=== PATIENT | female | born 1970 | race Caucasian/White ===

== ENCOUNTER 2021-07-27 05:18 | Day surgery (SDC) | payer OTHER ==
[2021-07-24 10:03] VITALS: BMI 32.0
[2021-07-27] MEDS ORDERED: MIDAZOLAM HCL 2 MG/2 ML SINGLE DOSE VIAL ONE (12:58)
[2021-07-27] MEDS ORDERED: PROPOFOL 20 ML ONE (12:58)
[2021-07-27] MEDS ORDERED: GLYCOPYRROLATE 0.2 MG/1 ML VIAL ONE (12:59)
[2021-07-27] MEDS ORDERED: KETOROLAC TROMETHAMINE 30 MG/1 ML VIAL ONE (12:59)
[2021-07-27] MEDS ORDERED: LIDOCAINE HCL 2% 100 MG/5 ML DISP.SYRIN ONE (12:59)
[2021-07-27] MEDS ORDERED: LIDOCAINE HCL/PF 2% SDV 5ML VIAL ONE (12:59)
[2021-07-27 14:23] VITALS: BP 138/84; PULSE 89; TEMP 97.2
== END 2021-07-27 14:31 | disposition home or self-care (01) ==
LOC: JASU-SURG 05:18
PROVIDERS: ATTEND Urology
PROC: 0TF4XZZ Fragmentation in Left Kidney Pelvis, External Approach (ICD-10-PCS; principal; 2021-07-27 11:30)
DX: N20.0 Calculus of kidney (principal); E11.9 Type 2 diabetes mellitus without complications

== ENCOUNTER 2021-09-07 04:11 | Day surgery (SDC) | payer OTHER ==
[2021-09-03 11:50] VITALS: BMI 31.6
[2021-09-07] MEDS ORDERED: GLYCOPYRROLATE 0.2 MG/1 ML VIAL ONE (07:45)
[2021-09-07] MEDS ORDERED: MIDAZOLAM HCL 2 MG/2 ML SINGLE DOSE VIAL ONE (07:46)
[2021-09-07] MEDS ORDERED: LIDOCAINE HCL/PF 2% SDV 5ML VIAL ONE (08:00)
[2021-09-07] MEDS ORDERED: PROPOFOL 20 ML ONE (08:00)
[2021-09-07 09:16] VITALS: BP 130/84; PULSE 89; TEMP 97.2
[2021-09-07] MEDS ORDERED: ACETAMINOPHEN 500 MG TABLET (FP) PO PRN (09:21)
[2021-09-07] MEDS ORDERED: LACTATED RINGERS SOLUTION 1,000 ML IV SCH (09:30)
== END 2021-09-07 10:00 | disposition home or self-care (01) ==
LOC: JASU-SURG 04:11
PROVIDERS: ATTEND Urology
PROC: 0TF4XZZ Fragmentation in Left Kidney Pelvis, External Approach (ICD-10-PCS; principal; 2021-09-07 08:00)
DX: N20.0 Calculus of kidney (principal)
CPT/HCPCS: 82962

== ENCOUNTER 2021-10-12 12:51 | Observation (INO) | payer OTHER ==
[2021-10-12] MEDS ORDERED: morphine CARPU-JECT 4 MG/1 ML DISP.SYRIN IVPUSH ONE (13:23)
[2021-10-12] MEDS ORDERED: SODIUM CHLORIDE 0.9% 500 ML INFUS.BAG IV ONE ×2 (13:23→16:47)
[2021-10-12] MEDS ORDERED: ONDANSETRON 4 MG/2 ML VIAL IVPUSH ONE (13:23)
[2021-10-12] MEDS ORDERED: ONDANSETRON 4 MG/2 ML VIAL ONE (13:42)
[2021-10-12] MEDS ORDERED: morphine SULFATE 4 MG/ML VIAL ONE ×2 (13:42→20:12)
[2021-10-12] MEDS ORDERED: ACETAMINOPHEN 1000 MG/100 ML BAG IVPB ONE (14:03)
[2021-10-12] MEDS ORDERED: ACETAMINOPHEN INJECTION 100 ML IVPB ONE (14:06)
[2021-10-12 14:44] LABS: HEMATOCRIT 41.6 % (32.4-45.2); HEMOGLOBIN 13.7 GM/dL (10.7-15.3); MCH 28.2 pg (25.7-33.7); MEAN CELL VOLUME 85.6 fl (80-96); MEAN PLT VOLUME 8.8 fl (7.5-11.1); PLATELET COUNT 327 10^3/uL (134-434); RBC 4.87 M/mm3 (3.60-5.2); RDW 13.9 % (11.6-15.6); WHITE BLOOD COUNT 19.5 K/mm3 (4.0-10.0)
[2021-10-12 14:45] LABS: CALCIUM 9.8 mg/dL (8.5-10.1)
[2021-10-12 14:46] LABS: ALBUMIN 4.2 g/dl (3.4-5.0); BLOOD UREA NITROGEN 23.6 mg/dL (7-18)
[2021-10-12 14:49] LABS: CREATININE 1.5 mg/dL (0.55-1.3)
[2021-10-12 14:50] LABS: BILIRUBIN,TOTAL 0.4 mg/dL (0.2-1)
[2021-10-12 14:51] LABS: TOT PROT 7.8 g/dl (6.4-8.2)
[2021-10-12] MEDS ORDERED: morphine CARPU-JECT 2 MG/1 ML DISP.SYRIN IVPUSH ONE (15:08)
[2021-10-12 15:11] LABS: INR 1.09 (0.83-1.09); PROTHROMBIN TIME (PATIENT) 12.6 SEC (9.7-13.0)
[2021-10-12 16:48] LABS: ANISOCYTOSIS 3+; MACROCYTOSIS 0
[2021-10-12] MEDS ORDERED: ACETAMINOPHEN 325 MG TABLET (FP) PO PRN (19:35)
[2021-10-12] MEDS: morphine SULFATE 4 MG/ML VIAL IVPUSH PRN (20:16)
[2021-10-12] MEDS ORDERED: amLODIPine BESYLATE 10 MG TABLET (FP) PO SCH (22:00)
[2021-10-12] MEDS ORDERED: ROSUVASTATIN CA 10 MG TABLET PO SCH (22:00)
[2021-10-12] MEDS: INSULIN SLIDING SCALE (NOVOLOG) 1 VIAL SQ SCH (23:42)
[2021-10-12] MEDS ORDERED: amLODIPine BESYLATE 10 MG TABLET (FP) ONE (23:44)
[2021-10-13] MEDS ORDERED: morphine SULFATE 4 MG/ML VIAL ONE (00:39)
[2021-10-13] MEDS: morphine SULFATE 4 MG/ML VIAL IVPUSH PRN ×3 (00:59→11:22)
[2021-10-13 01:50] VITALS: BMI 30.2
[2021-10-13] MEDS: INSULIN SLIDING SCALE (NOVOLOG) 1 VIAL SQ SCH ×2 (06:07→13:42)
[2021-10-13 09:57] LABS: HEMATOCRIT 36.6 % (32.4-45.2); HEMOGLOBIN 12.3 GM/dL (10.7-15.3); MCH 28.6 pg (25.7-33.7); MCHC 33.7 g/dl (32.0-36.0); MEAN PLT VOLUME 8.5 fl (7.5-11.1); PLATELET COUNT 286 10^3/uL (134-434); RDW 13.9 % (11.6-15.6); WHITE BLOOD COUNT 9.3 K/mm3 (4.0-10.0)
[2021-10-13 10:22] LABS: BLOOD UREA NITROGEN 15.2 mg/dL (7-18)
[2021-10-13 10:23] LABS: CALCIUM 9.4 mg/dL (8.5-10.1); MAGNESIUM 2.2 mg/dL (1.8-2.4)
[2021-10-13 10:25] LABS: CREATININE 1.2 mg/dL (0.55-1.3); PHOSPHOROUS 3.8 mg/dL (2.5-4.9)
[2021-10-13 15:55] VITALS: BP 136/76; PULSE 83; TEMP 98.3
== END 2021-10-13 16:35 | disposition home or self-care (01) ==
LOC: JER 12:51 → UNDOADMOB 16:52 → JERBED 16:52 → INTOOBSV 16:52 → J8W 10-13 01:10 → JERBED 10-13 01:10 → J8W 10-13 01:17 → JERBED 10-13 15:47
PROVIDERS: ADMIT Internal Medicine; ATTEND Nurse Practitioner Family
PROC: 3E033NZ Introduction of Analgesics, Hypnotics, Sedatives into Peripheral Vein, Percutaneous Approach (ICD-10-PCS; principal; 2021-10-13)
PROC: 3E033NZ Introduction of Analgesics, Hypnotics, Sedatives into Peripheral Vein, Percutaneous Approach (ICD-10-PCS; 2021-10-13)
PROC: 3E0337Z Introduction of Electrolytic and Water Balance Substance into Peripheral Vein, Percutaneous Approach (ICD-10-PCS; 2021-10-13)
DX: G89.18 Other acute postprocedural pain (principal); I10 Essential (primary) hypertension; E78.5 Hyperlipidemia, unspecified; E11.9 Type 2 diabetes mellitus without complications; F17.210 Nicotine dependence, cigarettes, uncomplicated; R35.0 Frequency of micturition; R30.0 Dysuria; R10.30 Lower abdominal pain, unspecified; Z88.0 Allergy status to penicillin; E66.8 Other obesity; Z68.30 Body mass index [BMI] 30.0-30.9, adult
CPT/HCPCS: 36415; 74176-TC; 80048; 80053; 82962; 83735; 84100; 84703; 85025; 85027; 85610; 85730; 93005; 93010; 96374; 96375; 96376; 99285-25; C9803; G0378; U0003; U0005